=== PATIENT | female | born 1990 | race Caucasian/White ===

== ENCOUNTER 2017-04-20 19:28 | Emergency (ER) | payer MEDICAID, OTHER ==
[~2017-04-20] VITALS: Ht 162.6 cm; Wt 57.2 kg
[~2017-04-20 19:28] MED LIST: IBUP600 PO; PERI8.6T PO; PRENCAP6 PO
[2017-04-20 19:45] VITALS: BP 97/70; PULSE 95; RESP 16; TEMP 98.3; O2SAT 98
--- NOTE | 2017-04-20 20:15 | PD ---
HPI Chief Complaint: Bite or Sting Time Seen by Provider: 20:00 Travel History International Travel<30 days: No Contact w/Intl Traveler<30days: No Traveled to known affect area: No History of Present Illness HPI 26 old female presents to the emergency department with her family for evaluation of possible insect bites. Patient reports everyone in household has experienced insect bite since moving into their new housing. She reports the insects are very small "black and microscopic". She reports the insects as being in the carpet and on the furniture. He reports she feels itchy all the time. She brought multiple plastic baggies with what appeared to be small black particles in as evidence of what is biting her. They do not appear to be insects. PFSH Past Medical History Medical History: Denies Significant Hx Depression: Yes Cerebrovascular Accident: No Diminished Hearing: No Myocardial Infarction: No ?: : 1 Past Surgical History Appendectomy: Yes Social History Alcohol Use: No Tobacco Use: Yes (1/2 ppd) Substance Use: No Allergies-Medications (Allergen,Severity, Reaction): Coded Allergies: No Known Allergies (Unverified , 04/20/17) Reported Meds & Prescriptions Reported Meds & Active Scripts Active No Active Prescriptions or Reported Medications Review of Systems Except as stated in HPI: all other systems reviewed are Neg Physical Exam Narrative GENERAL: Alert, well-appearing female SKIN: Focused skin assessment warm/dry. No evidence of insect bites. HEAD: Atraumatic. Normocephalic. EYES: Pupils equal and round. No scleral icterus. No injection or drainage. ENT: No nasal bleeding or discharge. Mucous membranes pink and moist. NECK: Trachea midline. No JVD. CARDIOVASCULAR: Regular rate and rhythm. No murmur appreciated. RESPIRATORY: No accessory muscle use. Clear to auscultation. Breath sounds equal bilaterally. GASTROINTESTINAL: Abdomen soft, non-tender, nondistended. Hepatic and splenic margins not palpable. MUSCULOSKELETAL: No obvious deformities. No clubbing. No cyanosis. No edema. NEUROLOGICAL: Awake and alert. No obvious cranial nerve deficits. Motor grossly within normal limits. Normal speech. PSYCHIATRIC: Appropriate mood and affect; insight and judgment normal. Data Data Last Documented VS Vital Signs Date Time Temp Pulse Resp B/P Pulse Ox O2 Delivery O2 Flow Rate FiO2 04/20/17 19:45 98.3 95 16 97/70 98 MDM Medical Decision Making Medical Screen Exam Complete: Yes Emergency Medical Condition: Yes Differential Diagnosis Insect bites Narrative Course 26 her old female presents to emergency department with her family for evaluation of possible insect bites. Patient has no evidence of insect or parasitic infestation of the skin. She brought multiple baggies with what appeared to be small black particles. One baggie does have a small black insect which appears to be ant. Diagnosis Primary Impression: Insect bite Qualified Code: W57.XXXA - Insect bite, initial encounter Referrals: Primary Care Physician Additional Instructions: You can use [id number] Benadryl as needed for itching. I would recommend having the house evaluated by an rn ccu. Return to the emergency department if he develops new or worsening symptoms such as fever, chills, nausea, vomiting Scripts No Active Prescriptions or Reported Meds Disposition: 01 DISCHARGE HOME Condition: Stable Joanna Garcia Apr 20, 2017 20:14
== END 2017-04-20 20:50 | disposition home or self-care (01) ==
LOC: PHEFT 19:28
DX: T14.8 Other injury of unspecified body region (principal); W57.XXXA Bitten or stung by nonvenomous insect and other nonvenomous arthropods, initial encounter; Y93.9 Activity, unspecified; Y92.9 Unspecified place or not applicable; F17.210 Nicotine dependence, cigarettes, uncomplicated
CPT/HCPCS: 99282

== ENCOUNTER 2017-06-22 20:57 | Emergency (ER) | payer MEDICAID ==
[~2017-06-22] VITALS: Ht 160 cm; Wt 58.9 kg
[2017-06-22 21:05] VITALS: BP 115/60; PULSE 86; RESP 16; TEMP 98.1; O2SAT 98
[2017-06-22 22:10] LABS: BLOOD, URINE NEG (NEG); GLUCOSE,URINE NEG (NEG); KETONE, URINE NEG (NEG); NITRITE,URINE NEG (NEG)
[2017-06-22 22:15] LABS: URINE COLOR YELLOW (YELLW/STRAW)
[2017-06-22 22:16] LABS: COMMENT (UR) CULT NOT INDICATED; CULTURE IF INDICATED CULT NOT INDICATED; RBC, URINE 0-3 /hpf (0-3); SQUAMOUS EPITHELIAL CELL URINE > 8 /hpf (0-5); WBC, URINE 0-2 /hpf (0-5)
[2017-06-22 22:17] LABS: BACTERIA, URINE FEW /hpf
--- NOTE | 2017-06-22 22:53 | PD ---
HPI Chief Complaint: Musculoskeletal Complaint Time Seen by Provider: 21:50 Travel History International Travel<30 days: No Contact w/Intl Traveler<30days: No Traveled to known affect area: No History of Present Illness HPI 26-year-old female presents to the emergency department for complaint of sudden onset 5 minutes of right thigh pain that briefly extended down the right lower extremity and then came back to the right thigh and briefly went up to the right hip and resolved. Patient does not recall specific injury or contusion. Patient does not report any specific on position of the leg when symptoms began. Patient states she is she is not sure how far along she thinks her last visit. Was at the end of December were the end of February she thinks that she had a negative test at the end of March or beginning of April and then had a positive test at the end of April. Patient's had no care. Patient's continued to smoke cigarettes. Patient is Ab0. Patient denies any dysuria frequency urgency abdominal pain flank pain dysuria or urgency. Patient has noted urinary frequency. Patient's had no fever chills. Patient denies other concerns or complaints. Current pain is resolved 0/10 intensity but had been 8/10 in intensity. Patient denies other concerns or complaints. No recent long distance travel protracted bed rest surgical procedure history of clotting disorder. PFSH Past Medical History Narrative Medical Depression Ab0 appendectomy; tobacco use: Nursing notes reviewed Depression: Yes Cerebrovascular Accident: No Diminished Hearing: No Myocardial Infarction: No Tetanus Vaccination: > 5 Years Influenza Vaccination: No ?: LMP: 12/2016 : 1 Past Surgical History Appendectomy: Yes Social History Alcohol Use: No Tobacco Use: Yes (1/2 ppd) Substance Use: No Allergies-Medications (Allergen,Severity, Reaction): Coded Allergies: No Known Allergies (Unverified , 06/22/17) Reported Meds & Prescriptions Reported Meds & Active Scripts Active No Active Prescriptions or Reported Medications Review of Systems Except as stated in HPI: all other systems reviewed are Neg Physical Exam Narrative GENERAL: Well-developed well-nourished female in acute distress no respiratory distress SKIN: Warm and dry. HEAD: Normocephalic. EYES: No scleral icterus. No injection or drainage. NECK: Supple, trachea midline. No JVD or lymphadenopathy. CARDIOVASCULAR: Regular rate and rhythm without murmurs, gallops, or rubs. RESPIRATORY: Breath sounds equal bilaterally. No accessory muscle use. GASTROINTESTINAL: Abdomen soft, non-tender, nondistended. No guarding or rebound. Midline scar reportedly associated with previous elective appendectomy. Fundal height approximately 2-3 finger breaths below the umbilicus. MUSCULOSKELETAL: No cyanosis, or edema. Attention right lower extremity nontender to palpation no soft tissue swelling no redness no induration no warmth no pallor no coolness intact range of motion at hips knee ankle with tenderness no Homans sign and no posterior cord tenderness or palpation dorsalis pedis pulse posterior tibialis pulse 2+ to palpation. No deformity. BACK: Nontender without obvious deformity. No CVA tenderness. Data Data Last Documented VS Vital Signs Date Time Temp Pulse Resp B/P (MAP) Pulse Ox O2 Delivery O2 Flow Rate FiO2 06/22/17 21:05 98.1 86 16 115/60 (78) 98 Orders Orders Urinalysis - C+S If Indicated (06/22/17 21:50) Ed Urine Pregnancytest Poc (06/22/17 21:50) Labs Laboratory Tests Test 06/22/17 22:00 Urine Color YELLOW Urine Turbidity CLEAR Urine pH 6.0 Urine Specific Tad 1.026 Urine Protein TRACE mg/dL Urine Glucose (UA) NEG mg/dL Urine Ketones NEG mg/dL Urine Occult Blood NEG Urine Nitrite NEG Urine Bilirubin NEG Urine Leukocyte Esterase NEG Urine RBC 0-3 /hpf Urine WBC 0-2 /hpf Urine Squamous Epithelial Cells > 8 /hpf Urine Bacteria FEW /hpf Microscopic Urinalysis Comment CULT NOT INDICATED MDM Medical Decision Making Medical Screen Exam Complete: Yes Emergency Medical Condition: Yes Medical Record Reviewed: Yes Differential Diagnosis , UTI, muscle spasm Narrative Course Well-developed well-nourished female in no acute distress no respiratory distress tobacco use currently not on vitamins has not had any care presents with 5 minutes of resolved right thigh pain with known injury. No long distance travel protracted bedrest her surgical procedure disorder. Patient remains a symptomatic in the emergency department urinalysis is normal [id number] hCG is positive bedside ultrasound performed by me after informed consent using a curvilinear probe in the longitudinal and sagittal views identifies an intrauterine with heart rate of 136. Diagnosis Primary Impression: Additional Impression: Right thigh pain Referrals: [facility] call for appointment Patient Instructions: General Instructions Additional Instructions: Increase fluid hydration May use ice pack or cool compresses intermittently for first 12-24 hours to right eye as needed May take Tylenol as needed for fever 100.4 days Fahrenheit or greater or for minor pain Take vitamins daily Follow-up with [facility] call office in a.m. to schedule follow-up appointment Return to the emergency department for any concerns or change in condition Scripts No Active Prescriptions or Reported Meds Disposition: 01 DISCHARGE HOME Condition: Stable Kristin Sams MD Jun 22, 2017 22:53
== END 2017-06-22 23:09 | disposition home or self-care (01) ==
LOC: PHED 20:57
DX: O26.899 Other specified pregnancy related conditions, unspecified trimester (principal); M79.651 Pain in right thigh; O99.330 Smoking (tobacco) complicating pregnancy, unspecified trimester
CPT/HCPCS: 81001; 84703; 99284